=== PATIENT | male | born 1995 | race Caucasian/White ===

== ENCOUNTER 2020-11-30 17:23 | Outpatient (CLI) | payer BC | END 2020-11-30 17:24 | disposition critical access hospital (66) | LOC: EMS 17:23 | DX: R07.9 Chest pain, unspecified (principal) | CPT/HCPCS: A0425; A0427 ==

== ENCOUNTER 2020-11-30 18:24 | Emergency (ER) | payer BC ==
--- NOTE | 2020-11-30 18:49 | ED Physician Documentation ---
PD HPI CHEST PAIN - Stated complaint Stated Complaint: CHEST PX/JAW PX - Chief complaint Chief Complaint: Cardiac - History obtained from History obtained from: Patient - Additional information Additional information: 25-year-old gentleman with no personal significant past medical history but does have ongoing knee pain for last several years in the left knee presents with sudden onset chest pain radiating up and down to the jaw and the leg that started about 20 minutes ago while swallowing in his car. He is never had this before. Pain is going away quickly now. It is just a discomfort. He has no personal history of heart issues, but he had both parents developed coronary disease in their late 40s and early 50s. No recent travel. No pedal edema or calf pain. Review of Systems Ten Systems: 10 systems reviewed and negative Constitutional: denies: Fever, Chills Eyes: reports: Reviewed and negative Ears: reports: Reviewed and negative Nose: reports: Reviewed and negative Throat: reports: Reviewed and negative PD PAST MEDICAL HISTORY - Past Surgical History General: Appendectomy - Allergies Allergies/Adverse Reactions: Allergies Allergy/AdvReac Type Severity Reaction Status Date / Time Sulfa (Sulfonamide Allergy Unknown Verified 11/30/20 18:31 Antibiotics) - Social History Does the pt smoke?: No Smoking Status: Never smoker Does the pt drink ETOH?: Yes Does the pt have substance abuse?: No PD ED PE NORMAL - Vitals Vital signs reviewed: Yes - General General: Alert and oriented X 3, No acute distress - HEENT HEENT: PERRL, EOMI - Neck Neck: Supple, no meningeal sign, No bony TTP - Cardiac Cardiac: RRR, No murmur - Respiratory Respiratory: No respiratory distress, Clear bilaterally - Abdomen Abdomen: Normal bowel sounds, Soft, Non tender - Back Back: No CVA TTP, No spinal TTP - Derm Derm: Normal color, Warm and dry - Extremities Extremities: No deformity, No tenderness to palpate, Normal ROM s pain, No edema, No calf tenderness / cord - Neuro Neuro: Alert and oriented X 3, Normal speech Results - Vitals Vitals: Vital Signs - 24 hr 11/30/20 18:28 Temperature 37.2 C Heart Rate 97 Respiratory 19 Rate Blood Pressure 150/94 H O2 Saturation 98 Oxygen O2 Source Room air - EKG (time done) 1825 Rate: Rate (enter#) (86) Rhythm: NSR (With sinus arrhythmia) Carson: Normal Intervals: Normal SD QRS: Normal Ischemia: Normal ST segments - Labs Labs: Laboratory Tests 11/30/20 11/30/20 11/30/20 18:45 18:45 18:45 WBC 10.7 RBC 4.93 Hgb 15.2 Hct 45.4 MCV 92.1 MCH 30.8 MCHC 33.5 RDW 12.1 Plt Count 259 MPV 9.7 Neut # (Auto) 8.1 H Lymph # (Auto) 1.8 Yancey # (Auto) 0.5 Eos # (Auto) 0.1 Baso # (Auto) 0.0 Absolute Nucleated RBC 0.00 Nucleated RBC % 0.0 Sodium 138 Potassium 3.6 Chloride 100 L Carbon Dioxide 30 Anion Gap 8.0 BUN 12 Creatinine 0.9 Estimated GFR (MDRD) 104 Glucose 147 H Calcium 9.3 Total Bilirubin 0.8 AST 25 ALT 28 Alkaline Phosphatase 50 Troponin I High Sens < 2.3 L Total Protein 7.5 Albumin 4.5 Globulin 3.0 Albumin/Globulin Ratio 1.5 Lipase 28 - Rads (name of study) X-rays of the chest and left knee are normal Radiology: EMP read contemporaneously PD MEDICAL DECISION MAKING - ED course ED course: The fact that it started while swallowing and radiating up and down is most c onsistent with esophageal spasm. He requested x-ray of his left knee since its been bothering him for a long time. Departure - Departure Disposition: 01 Home, Self Care Clinical Impression: Atypical chest pain, Chronic pain of left knee Condition: Good Record reviewed to determine appropriate education?: Yes Instructions: ED Chest Pain NonCardiac Comments: Your blood sugar is a modestly elevated at 147. This does not diagnose diabetes nor does it very elevated, that said you should have it rechecked with your doctor on a fasting basis. X-rays of the left knee were normal, the testing demonstrated no heart issue. As discussed I suspect he had an esophageal spasm. Follow-up with your primary care physician for further evaluation and treatment. Return for new or worsening symptoms.
[2020-11-30 18:53] LABS: BASOPHILS % (AUTO) 0.3 %; EOSINOPHILS # (AUTO) 0.1 10^3/uL (0.0-0.7); EOSINOPHILS % (AUTO) 0.9 %; HCT - HEMATOCRIT 45.4 % (42.0-52.0); HGB - HEMOGLOBIN 15.2 g/dL (14.0-18.0); LYMPHOCYTES # (AUTO) 1.8 10^3/uL (1.5-3.5); LYMPHOCYTES % (AUTO) 17.2 %; MEAN CORPUSCULAR HEMOGLOBIN 30.8 pg (27.0-31.0); MEAN CORPUSCULAR HGB CONC 33.5 g/dL (32.0-36.0); MEAN CORPUSCULAR VOLUME 92.1 fL (80.0-94.0); MEAN PLATELET VOLUME 9.7 fL (7.4-11.4); MONOCYTES # (AUTO) 0.5 10^3/uL (0.0-1.0); NEUTROPHILS # (AUTO) 8.1 10^3/uL (1.5-6.6); NEUTROPHILS % (AUTO) 76.3 %; PLT - PLATELET COUNT 259 10^3/uL (130-450); RED BLOOD COUNT 4.93 10^6/uL (4.70-6.10); RED CELL DISTRIBUTION WIDTH 12.1 % (12.0-15.0); WHITE BLOOD COUNT 10.7 x10^3/uL (4.8-10.8)
[2020-11-30 19:04] LABS: ALBUMIN 4.5 g/dL (3.2-5.5); ALBUMIN/GLOBULIN RATIO 1.5 (1.0-2.2); BILIRUBIN,TOTAL 0.8 mg/dL (0.2-1.0); CALCIUM 9.3 mg/dL (8.5-10.3); CREATININE 0.9 mg/dL (0.6-1.2); POTASSIUM 3.6 mmol/L (3.5-5.0); TOTAL PROTEIN 7.5 g/dL (6.7-8.2)
--- NOTE | 2020-11-30 20:08 | XRAY Report ---
PROCEDURE: Chest 1 View X-Ray INDICATIONS: Chest pain TECHNIQUE: One view of the chest was acquired. COMPARISON: None FINDINGS: Surgical changes and devices: None. Lungs and pleura: No pleural effusions or pneumothorax. Lungs are clear. Mediastinum: Mediastinal contours appear normal. Heart size is normal. Bones and chest wall: No suspicious bony lesions. Overlying soft tissues appear unremarkable. IMPRESSION: No acute cardiopulmonary process demonstrated radiographically. Reviewed by: Stan Weiss MD on 11/30/2020 8:07 PM PDT Approved by: Stan Weiss MD on 11/30/2020 8:07 PM PDT Station ID: [id number]
--- NOTE | 2020-11-30 20:10 | XRAY Report ---
PROCEDURE: Knee 4 View LT INDICATIONS: Knee injury TECHNIQUE: 4 views of the left knee(s) were acquired. COMPARISON: None. FINDINGS: Bones: No fractures or dislocations. No suspicious bony lesions. Soft tissues: No joint effusion. No suspicious soft tissue calcifications. IMPRESSION: No acute finding. Reviewed by: Stan Weiss MD on 11/30/2020 8:08 PM PDT Approved by: Stan Weiss MD on 11/30/2020 8:08 PM PDT Station ID: [id number]
[2020-11-30 20:51] VITALS: BP 127/86
== END 2020-11-30 20:50 | disposition home or self-care (01) ==
LOC: ED 18:24
DX: R07.89 Other chest pain (principal); G89.29 Other chronic pain; M79.605 Pain in left leg
CPT/HCPCS: 36415; 80053; 83690; 84484; 85025; 93005; 99284